=== PATIENT | female | born 1995 | race Caucasian/White ===

== ENCOUNTER 2021-01-18 00:58 | Emergency (ER) | payer OTHER, SELFPAY ==
--- NOTE | ~2021-01-18 | XR_ITS ---
XR wrist LT min 3V DATE: 01/18/2021 01:19 INDICATION: Left wrist injury, pain TECHNIQUE: 4 views COMPARISON: 09/20/2005 left wrist FINDINGS: No fracture or dislocation, periosteal reaction or bone destruction. Joint spaces are prese rved. No chondrocalcinosis or erosive change. IMPRESSION: Negative Reviewed, dictated and finalized at location A. IMPRESSION: Negative
--- NOTE | 2021-01-18 01:03 | PC.NURSE ---
vrbo lf wrist injury xray
[2021-01-18 01:08] VITALS: BP 115/77; PULSE 80; RESP 20; TEMP 36.9; O2SAT 100
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
[2021-01-18 04:09] VITALS: BP 120/80; PULSE 75; RESP 18; O2SAT 100
== END 2021-01-18 04:08 | disposition home or self-care (01) ==
PROVIDERS: Emergency Provider General Practice; PCP Family Medicine
DX: S63.502A Unspecified sprain of left wrist, initial encounter (principal); X58.XXXA Exposure to other specified factors, initial encounter; Y99.0 Civilian activity done for income or pay
CPT/HCPCS: 73110; 99283

== ENCOUNTER 2021-03-23 16:37 | Emergency (ER) | payer OTHER, SELFPAY ==
[2021-03-23 16:46] VITALS: BP 114/74; PULSE 99; RESP 18; TEMP 37.1; O2SAT 100
--- NOTE | 2021-03-23 16:57 | ED.FEMALEGU ---
HPI - Female Genitourinary General Chief complaint: Urogenital-Female Stated complaint: Female Urogenital Source: patient Mode of arrival: ambulatory Limitations: no limitations History of Present Illness HPI Narrative: Patient is a 25-year-old female who presents reporting possibly having a foreign body in her vagina x5 days. Patient reports she believes she has a tampon stuck . Patient reports that she generally does not wear tampons and uses a menstrual cup but she reports that she was working a lot this past weekend and used tampons instead. She reports pelvic cramping and discharge, she denies urinary complaints. She denies concerns for STDs. She denies all other complaints at this time. Patient has no significant medical history. Related Data Home Medications Medication Instructions Recorded Confirmed levonorgestrel-ethinyl estrad 1 tablet PO DAILY 03/23/21 Allergies Allergy/AdvReac Type Severity Reaction Status Date / Time No Known Allergies Allergy Verified 03/23/21 17:03 Review of Systems Review of Systems: CONSTITUTIONAL: Denies fever, chills, or sweats. EYES: Denies visual changes, redness, or discharge. ENT: Denies rhinorrhea, congestion, sore throat, or otalgia. CARDIOVASCULAR: Denies chest pain, palpitations, or edema. RESPIRATORY: Denies cough or dyspnea. GASTROINTESTINAL: Denies abdominal pain, nausea, vomiting, or diarrhea. GENITOURINARY: Reports possible tampon in vagina SKIN: Denies rash or itching. MUSCULOSKELETAL: Denies back pain, joint pain, or myalgia. NEUROLOGIC: Denies headache, numbness, dizziness, or weakness. PSYCHIATRIC: Denies anxiety or depression. [facility] Past Medical History Medical History Patient denies medical problems Surgical History Surgical History H/O elbow surgery Family History Family History Father Family history of allergic disorder Mother Family history of malignant neoplasm of breast in first degree relative, Onset Age: 41 Social History Social History Smoking status: Never smoker Alcohol intake: never Gender identity (if verbalized by the patient): Female Sexual Orientation (if Verbalized by the Patient): Straight or Heterosexual Comments At the time of signature, I have reviewed and agree with nursing past medical, surgical, social, and family history unless otherwise noted. Please see nursing chart for further information. There is no relevant family history pertinent to the presenting complaint. Exam Narrative: GENERAL: Well-appearing, well-nourished, and in no acute distress. HEAD: Normocephalic, atraumatic. EYES: EOMI. No redness or drainage. Conjunctiva are normal. ENT: Mucous membranes pink and moist. : No foreign body noted, thick whitish discharge noted in vaginal vault and vagina, cervix closed CHEST: No respiratory distress. HEART: Regular rate and rhythm. EXTREMITIES: Normal range of motion. SKIN: Warm, dry, no rash. NEURO: No focal deficits. Alert and oriented x3. Gait steady. PSYCH: Normal affect. No signs of depression or anxiety. Course Vital Signs Vital signs: Vital Signs Temperature 37.1 C 03/23/21 16:46 Pulse Rate 99 03/23/21 16:46 Respiratory Rate 18 03/23/21 16:46 Blood Pressure 114/74 03/23/21 16:46 Pulse Oximetry 100 03/23/21 16:46 Temperature 37.1 C 03/23/21 16:46 Pulse Rate 99 03/23/21 16:46 Respiratory Rate 18 03/23/21 16:46 Blood Pressure 114/74 03/23/21 16:46 Pulse Oximetry 100 03/23/21 16:46 Reviewed MDM - Female Genitourinary MDM Narrative Medical decision making narrative: No foreign body visualized in the vagina, thick white vaginal discharge noted. Discussed with patient STD testing which she requests to be sent at this time. Lyric
== END 2021-03-23 17:26 | disposition home or self-care (01) ==
PROVIDERS: Emergency Provider Nurse Practitioner; PCP Family Medicine
DX: N89.8 Other specified noninflammatory disorders of vagina (principal)
CPT/HCPCS: 87491; 87591; 87661; 99214; G0463

== ENCOUNTER 2022-02-25 14:07 | Outpatient (CLI) | payer BC, SELFPAY ==
[2022-02-25 20:31] LABS: Basophils Absolute Auto 0.1 K/mm3 (0.0-0.1); Basophils Percent Auto 0.7 % (0.2-1.2); Eosinophils Percent Auto 0.4 % (0-4.4); Hematocrit 37.4 % (37.0-47.0); Immature Granulocyte Absolute 0.02 K/mm3 (0.00-0.031); Immature Granulocyte Percent A 0.3 % (0-0.5); Lymphocytes Absolute Auto 1.48 K/mm3 (0.9-3.2); Lymphocytes Percent Auto 21.4 % (18.3-44.2); Mean Corpuscular HGB Conc 33.7 g/dl (32-36); Mean Corpuscular Hemoglobin 30.4 pg (26-34); Mean Corpuscular Volume 90.1 fl (80-100); Mean Platelet Volume 12.5 fl (7.4-10.4); Monocytes Absolute Auto 0.4 K/mm3 (0.1-0.6); Monocytes Percent Auto 5.4 % (2.6-8.5); Neutrophils Percent Auto 71.8 % (45.5-73.1); Platelet Count Result 182 k/mm3 (150-375); Red Blood Count 4.15 M/mm3 (4.2-5.4); Red Cell Distribution Width 11.7 % (11.5-14.5); White Blood Count 6.9 K/mm3 (4.5-10.0)
[2022-02-25 20:56] LABS: Alanine Aminotransferase 28 U/L (6-35); Albumin Level 4.2 g/dL (3.5-5.1); Alkaline Phosphatase 62 U/L (38-126); Anion Gap 12 mmol/L (8-16); Aspartate Amino Transferase 42 U/L (14-36); Bilirubin,Total 0.3 mg/dL (0.2-1.3); Blood Urea Nitrogen 7 mg/dL (7-17); Calcium 8.6 mg/dL (8.4-10.2); Carbon Dioxide 25 mmol/L (22-30); Chloride 103 mmol/L (98-107); Estimated Glomerular Filt Rate > 60; Glucose 92 mg/dL (65-110); Sodium 140 mmol/L (137-145)
[2022-02-25 21:06] LABS: Hemoglobin 12.6 g/dL (12.0-15.0)
== END 2022-02-25 14:08 | disposition home or self-care (01) ==
LOC: ANHGOSHLAB 14:09
PROVIDERS: PCP Emergency Medicine; Visit Provider Emergency Medicine
DX: R00.2 Palpitations (principal)
CPT/HCPCS: 36415; 80053; 84443; 85025

== ENCOUNTER 2022-03-09 15:26 | Emergency (ER) | payer OTHER, BC, SELFPAY ==
--- NOTE | ~2022-03-09 | XR_ITS ---
EXAM: XR finger 2nd RT min 2V DATE: 03/09/2022 15:41 HISTORY: injury to DIP finger . COMPARISON: None available. FINDINGS: Normal mineralization. No fracture or dislocation. No lytic or blastic lesion. Joint space s are maintained. No erosion or periosteal change. Soft tissues within normal limits. IMPRESSION: No acute osseous finding in the right second finger. Reviewed, dictated and finalized at location K.
--- NOTE | 2022-03-09 15:36 | ED.UPPEXIN ---
HPI - Extremity Injury (Upper) General Chief Complaint: Extremity Injury, Upper Stated Complaint: rt hand index finger injury Time Seen by Provider: 03/09/22 15:51 Source: patient and RN notes reviewed Mode of arrival: ambulatory Limitations: no limitations History of Present Illness HPI narrative: 26-year-old female presents with concern for injury to the second digit of her right hand. Reports while at work she caught her finger in her squad car door and had to pull it out. She reports pain, bruising. She reports a small abrasion. 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 complaint: injury to: right and finger Related Data Allergies Allergy/AdvReac Type Severity Reaction Status Date / Time No Known Allergies Allergy Verified 02/25/22 13:04 Review of Systems Review of Systems: CONSTITUTIONAL: Denies malaise, chills, sweats, or fever. SKIN: Denies rash or itching, open skin, laceration, abrasion, redness, warmth MUSCULOSKELETAL: Reports pain, bruising to the second digit of the right hand NEUROLOGIC: Denies numbness, weakness All systems reviewed & are unremarkable except as noted in HPI and below PMFSH Past Medical History Medical History Patient denies medical problems Surgical History Surgical History H/O elbow surgery Family History Family History Father Family history of allergic disorder Mother Family history of malignant neoplasm of breast in first degree relative, Onset Age: 41 Social History Social History Smoking status: Never smoker Alcohol intake: never Gender identity (if verbalized by the patient): Female Sexual Orientation (if Verbalized by the Patient): Straight or Heterosexual Comments At time of signature, agree with nursing past medical, surgical, social and family history. There is no relevant family history pertinent to the presenting complaint Exam Narrative: GENERAL: Well-appearing, well-nourished, and in no acute distress. HEAD: Normocephalic EYES: PERRLA, conjunctivae clear NECK: Supple. CHEST: Speaks in full sentences. No respiratory distress. HEART: Regular rate and rhythm. Normal and equal peripheral pulses. EXTREMITIES: Second digit of right hand has normal sensation. 4/5 strength with digit flexion, extension. Range of motion limited likely due to swelling. No clubbing, cyanosis. Mild distal digit tenderness, ecchymosis and edema noted. Normal digital cascade with flexion of fingers, median, ulnar and radial nerve intact. Normal sensation of each side of finger. No scissoring. Normal thumb opposition. Good capillary refill and radial pulse. Distal capillary refill less than 3 seconds. Patient is right/left hand dominant SKIN: Warn, dry, intact, pink.. Superficial abrasion noted to the anterior distal second digit of the right hand underneath the nailbed, not involving the nailbed NEURO: Alert and oriented x3. PSYCH: Normal mood and affect Course Course Emergency Course: Patient is aware of diagnosis, understands and agrees to treatment plan. Anticipatory guidance given. Patient agrees to follow-up as directed and is aware of reasons to seek care at the emergency department. Portions of this record may have been created with voice recognition software Level of Care: Express Care Visit Vital Signs Vital signs: Reviewed. MDM - Extremity Injury (Upper) MDM Narrative Medical decision making narrative: Patients injury and pain is consistent with musculoskeletal etiology. No signs of neurological or vascular compromise on exam. Compartments and tissues are soft without signs of compartment syndrome. Pain is felt appropriate for further evaluation on an out
[2022-03-09 15:41] VITALS: BP 111/79; PULSE 96; RESP 20; TEMP 37; O2SAT 100
== END 2022-03-09 16:01 | disposition home or self-care (01) ==
PROVIDERS: Emergency Provider Nurse Practitioner; PCP Emergency Medicine
DX: S60.021A Contusion of right index finger without damage to nail, initial encounter (principal); X58.XXXA Exposure to other specified factors, initial encounter
CPT/HCPCS: 29130; 73140; 99213; G0463

== ENCOUNTER 2022-03-13 13:45 | Outpatient (CLI) | payer BC, SELFPAY ==
--- NOTE | 2022-03-13 14:09 | ECHO_ITS ---
Patient Info Name: Lavern Morgan Age: 26 years : 1995 Gender: Female Ht: 64 in Wt: 150 lbs BSA: 1.77 m2 HR: 87 bpm BP: 111 / 81 mmHg Technical Quality: Good Exam Date: 03/13/2022 2:34 PM Exam Location: [facility] Patient Status: Outpatient Admit Date: 03/13/2022 Staff Ordering Physician: Randall Felder MD Industrial Relations Worker: Gianni Solano RDCS, RT Attending Provider: Randall Felder MD Referring Physician: Emerita HENLEY; Exam Type: CA echo doppler color flow Study Info Indications R00.2 - Palpitations Complete two-dimensional, color flow and Doppler transthoracic echocardiogram is performed. Strain analysis performed. Summary 1. Complete two-dimensional, color flow and Doppler transthoracic echocardiogram is performed. 2. Left ventricular chamber dimension is normal. 3. Left ventricular systolic function is normal, estimated at 60-65%. 4. The left ventricular diastolic function is normal. 5. E/e' 4 is not elevated. 6. Global longitudinal strain is normal at -18.9%. Left Ventricle E/e' 4 is not elevated. Global longitudinal strain is normal at -18.9%. Left ventricular chamber dimension is normal. Left ventricular systolic function is normal, estimated at 60-65%. The left ventricular diastolic function is normal. Right Ventricle Right ventricular chamber dimension is normal. Right ventricular systolic function is normal. Left Atria Left atrial chamber dimension is normal. Right Atria Right atrial chamber dimension is normal. Aortic Valve The aortic valve is trileaflet. There is no aortic valve stenosis. There is no aortic valve regurgitation. Pulmonic Valve There is no pulmonic regurgitation. Mitral Valve There is no mitral valve stenosis. There is no mitral valve regurgitation. Tricuspid Valve There is no tricuspid valve regurgitation. Pericardium/Pleural There is no pericardial effusion. Inferior Vena Cava Normal inferior vena cava with >50% collapse upon inspiration consistent with normal right atrial pressure, 5 mmHg. Aorta The aortic root size at the sinus of Valsalva is normal. Left Ventricular Outflow Tract Name Value Normal LVOT 2D LVOT Diameter 2.0 cm LVOT Doppler LVOT Peak Gradient 4 mmHg LVOT Mean Gradient 2 mmHg LVOT VTI 18 cm LVOT VTI/AV VTI Ratio 0.7 LVOT Stroke Volume 59 ml LVOT CO 4.8 l/min LVOT CI 2.7 l/min/m2 Mitral Valve Name Value Normal MV Doppler MV Decel [place] 337 cm/s2 MV PHT 64 ms MV Area (PHT) 3.4 cm2 4.0-5.0 MV Diastolic Function
--- NOTE | 2022-03-13 14:53 | ECG_ITS ---
Measurements Intervals [place] Rate: 75 P: 60 LA: 147 QRS: 66 QRSD: 82 T: 37 QT: 404 QTc: 451 Interpretive Statements SINUS RHYTHM WITH MARKED SINUS ARRHYTHMIA BORDERLINE ECG NO PREVIOUS ECG AVAILABLE FOR COMPARISON Electronically Signed On 03-13-2022 15:28:26 CDT by Bigg Calzada M.D.
== END 2022-03-13 13:46 | disposition home or self-care (01) ==
PROVIDERS: PCP Emergency Medicine; Visit Provider Emergency Medicine
DX: R00.2 Palpitations (principal)
CPT/HCPCS: 93005; 93306

== ENCOUNTER 2023-03-15 12:19 | Emergency (ER) | payer OTHER, SELFPAY ==
[2023-03-15 12:27] VITALS: BP 113/70; PULSE 77; RESP 20; TEMP 36.6; O2SAT 99
--- NOTE | 2023-03-15 12:41 | ED.GENADULT ---
HPI - General Adult General Chief complaint: Wound/Laceration Stated complaint: Right thumb lac Source: patient Mode of arrival: ambulatory Limitations: no limitations History of Present Illness HPI narrative: Patient presents for evaluation of laceration to the right thumb that occurred just prior to arrival. She indicates she cut herself on a can. She now has a small and bleeding from the laceration. She rates her pain 1/10 severity. No loss of range of motion. No paresthesias. She is right-hand dominant. Last tetanus was 12 years ago. Related Data Allergies Allergy/AdvReac Type Severity Reaction Status Date / Time No Known Allergies Allergy Verified 03/15/23 12:33 Review of Systems Review of Systems: CONSTITUTIONAL: Denies fever, chills, or sweats. EYES: Denies visual changes, redness, or discharge. ENT: Denies rhinorrhea, congestion, sore throat, or otalgia. CARDIOVASCULAR: Denies chest pain, palpitations, or edema. RESPIRATORY: Denies cough or dyspnea. GASTROINTESTINAL: Denies abdominal pain, nausea, vomiting, or diarrhea. GENITOURINARY: Denies dysuria or hematuria. SKIN: Reports laceration to right thumb. Denies rash or itching. MUSCULOSKELETAL: Denies back pain, joint pain, or myalgia. NEUROLOGIC: Denies headache, numbness, dizziness, or weakness. PSYCHIATRIC: Denies anxiety or depression. [facility] Past Medical History Medical History History of ovarian cyst Patient denies medical problems Surgical History Surgical History H/O elbow surgery Family History Family History Father Family history of allergic disorder Mother Family history of malignant neoplasm of breast in first degree relative, Onset Age: 41 Social History Social History Social History: Caffeine- coffee Smoking status: Never smoker Alcohol intake: current Alcohol use details: occasionally Substance use: never Substance use type: does not use Lack of Transportation: No Lack of Food: Never True Current Housing: I Have Housing Concerned About Future Housing: No Difficulty Paying Gas/Electric Bills: No Difficulty Paying for Meds: No Currently Unemployed: No Education: Bachelor's Degree Difficulty w/ Childcare or Family Care: No Gender identity (if verbalized by the patient): Female Sexual Orientation (if Verbalized by the Patient): Straight or Heterosexual Exam Narrative: GENERAL: Well-appearing, well-nourished, and in no acute distress. HEAD: Normocephalic, atraumatic. EYES: PERRLA and EOMI. ENT: Nares clear, no rhinorrhea or epistaxis. Mucous membranes moist. Oropharynx without tonsillar hypertrophy exudate or other lesions. Bilateral TMs pearly lizama nonbulging NECK: Supple. No adenopathy or masses. No carotid bruits or JVD CHEST: Clear to auscultation. No respiratory distress. No wheezes rales or rhonchi HEART: Regular rate and rhythm. No murmur heard. Normal peripheral pulses. ABDOMEN: Soft, nontender, nondistended, normal active bowel sounds. EXTREMITIES: Normal range of motion. No edema. SKIN: Approximately 2 cm linear laceration to palmar aspect of the distal phalanx of the right thumb. Skin is warm, dry, no rash. NEURO: No focal deficits. Alert and oriented x3. PSYCH: Normal mood and affect. Course Course Emergency Course: This is a 27-year-old female who presented for evaluation of a laceration to right thumb. Wound was thoroughly cleaned and closed with 4 sutures. A small amount of Dermabond was used at the proximal aspect of the laceration. Pt tolerated well. Updated on tetanus. Advised on wound care. Follow up with primary provider. Go to the emergency department for evidence of infection or worsening symptoms. Patient in agreeme
[2023-03-15] MEDS: TETANUS,DIPHTHERIA,AC PERTUSSIS ADULT (0.5 ML) BOOSTRIX IM (12:47)
== END 2023-03-15 13:39 | disposition home or self-care (01) ==
PROVIDERS: Emergency Provider Nurse Practitioner
DX: S61.011A Laceration without foreign body of right thumb without damage to nail, initial encounter (principal); Z23 Encounter for immunization; W26.8XXA Contact with other sharp object(s), not elsewhere classified, initial encounter
CPT/HCPCS: 12001; 90471; 90715; 99212; G0463

== ENCOUNTER 2024-01-01 09:14 | Outpatient (CLI) | payer BC, SELFPAY ==
[2024-01-01 19:37] LABS: Basophils Percent Auto 0.4 % (0.2-1.2); Eosinophils Absolute Auto 0.1 K/mm3 (0-0.3); Eosinophils Percent Auto 0.5 % (0-4.4); Hematocrit 41.7 % (37.0-47.0); Hemoglobin 13.7 g/dL (12.0-15.0); Immature Granulocyte Absolute 0.03 K/mm3 (0.00-0.031); Immature Granulocyte Percent A 0.3 % (0-0.5); Lymphocytes Absolute Auto 1.89 K/mm3 (0.9-3.2); Lymphocytes Percent Auto 19.8 % (18.3-44.2); Mean Corpuscular HGB Conc 32.9 g/dl (32-36); Mean Corpuscular Hemoglobin 29.6 pg (26-34); Mean Corpuscular Volume 90.1 fl (80-100); Mean Platelet Volume 12.3 fl (7.4-10.4); Monocytes Absolute Auto 0.4 K/mm3 (0.1-0.6); Monocytes Percent Auto 4.5 % (2.6-8.5); Neutrophils Absolute Auto 7.1 K/mm3 (1.3-6.7); Neutrophils Percent Auto 74.5 % (45.5-73.1); Platelet Count Result 209 k/mm3 (150-375); Red Blood Count 4.63 M/mm3 (4.2-5.4); Red Cell Distribution Width 11.8 % (11.5-14.5); White Blood Count 9.5 K/mm3 (4.5-10.0)
[2024-01-01 19:45] LABS: Vitamin D 25 Hydroxy 35.2 ng/mL
[2024-01-01 19:48] LABS: Alanine Aminotransferase 28 U/L (6-35); Alkaline Phosphatase 80 U/L (38-126); Anion Gap 11 mmol/L (4-12); Aspartate Amino Transferase 34 U/L (14-36); Bilirubin,Total 0.5 mg/dL (0.2-1.3); Blood Urea Nitrogen 9 mg/dL (7-17); Carbon Dioxide 27 mmol/L (22-30); Chloride 100 mmol/L (98-107); Cholesterol 141 mg/dL (0-200); Estimated Glomerular Filt Rate > 60; Glucose 103 mg/dL (65-110); HDL Direct 78 mg/dL; Potassium 3.9 mmol/L (3.4-5.0); Sodium 138 mmol/L (137-145); Triglycerides 141 mg/dL (<150)
[2024-01-01 20:01] LABS: Thyroid Stimulating Hormone 0.879 uIU/mL (0.465-4.680)
[2024-01-01 20:36] LABS: Folic Acid 15.4 ng/mL (2.76->20)
[2024-01-01 21:08] LABS: Albumin Level 4.6 g/dL (3.5-5.1)
[2024-01-01 21:09] LABS: LDL Cholesterol Direct < 30 mg/dL
[2024-01-01 21:59] LABS: Hemoglobin A1C 5.2 % (<5.7)
== END 2024-01-01 09:15 | disposition home or self-care (01) ==
LOC: ANHGOSHLAB 09:15
PROVIDERS: PCP Emergency Medicine; Visit Provider Emergency Medicine
DX: R53.83 Other fatigue (principal); R63.5 Abnormal weight gain
CPT/HCPCS: 36415; 80053; 80061; 82306; 82607; 82746; 83036; 84443; 85025